=== PATIENT | male | born 1990 | race Caucasian/White ===

== ENCOUNTER 2020-03-02 22:51 | Emergency (ER) | payer OTHER ==
[~2020-03-02] VITALS: Ht 170.2 cm; Wt 99.8 kg
[2020-03-02 23:04] VITALS: Ht 170.2 cm; Wt 99.8 kg
[2020-03-03 02:09] VITALS: BP 123/76
== END 2020-03-03 02:00 | disposition home or self-care (01) ==
LOC: ED 22:51
DX: M54.5 Low back pain (principal)
CPT/HCPCS: J1885